=== PATIENT | female | born 1985 | race Two or more races ===

== ENCOUNTER 2018-03-30 19:25 | Emergency (ER) | payer SELFPAY ==
[2018-03-30 20:10] VITALS: RESP 16; TEMP 97.5
[2018-03-30 21:14] VITALS: BP 112/78; PULSE 71; O2SAT 98
== END 2018-03-30 21:13 | disposition home or self-care (01) | DRG 392 ==
LOC: ED 19:25 → EDBD 19:25 → ED 21:13
DX: R13.11 Dysphagia, oral phase (principal)
CPT/HCPCS: 71046; 99282; 99283